=== PATIENT | female | born 2005 | race Caucasian/White ===

== ENCOUNTER 2025-08-05 15:19 | Outpatient (CLI) | payer OTHER, MEDICAID, SELFPAY ==
[2025-08-06 19:35] LABS: Strep B DNA Probe Negative (Negative)
[2025-08-06 20:05] LABS: Strep B Susceptibility Needed? No
== END 2025-08-05 15:20 | disposition home or self-care (01) ==
PROVIDERS: Visit Provider Physician Assistant
DX: O09.33 Supervision of pregnancy with insufficient antenatal care, third trimester (principal)
CPT/HCPCS: 80306; 86592; 87081; 87653

== ENCOUNTER 2025-08-11 08:16 | Outpatient (CLI) | payer MEDICAID, SELFPAY | END 2025-08-11 08:17 | disposition home or self-care (01) | PROVIDERS: Visit Provider Obstetrics & Gynecology | DX: O09.33 Supervision of pregnancy with insufficient antenatal care, third trimester (principal) | CPT/HCPCS: 82951; 82952 ==

== ENCOUNTER 2025-08-26 07:00 | Inpatient (IN) | payer MEDICAID, SELFPAY ==
[2025-08-26] VITALS (20 sets, daily range): BP systolic 118–142; BP diastolic 61–81; PULSE 64–84; RESP 16–18; TEMP 36.4–37.1; O2SAT 97; BMI 37.5
--- NOTE | 2025-08-26 07:31 | W.PM.VAGDEL1 ---
Procedure Procedure Done: Global Procedure Details: Normal spontaneous vaginal delivery Events: Other (Precipitous delivery, limited care, history of PPH) Intrapartal Events: Precipitous Labor <3 Hrs Delivery monitor: external FHT Route of delivery: Laceration description: None Estimated blood loss (mL): 100 Anesthesia type: None Complications: None Narrative: Joy is a 19 yo at 38w5d GA admitted for spontaneous onset of labor. is complicated by limited care, late transfer of care, history of PPH in prior delivery, history of molar . A complete NST was not completed prior to delivery due to precipitous delivery, though category 1 on admission. Baseline 120bpm, moderate variability with accels present. She was checked by bedside RN at 0656 and noted to be 3.5cm dilated. Patient went to restroom shortly thereafter, where she noted pressure and imminent delivery. She was assumed completed at 0659, vertex was noted to be presenting at introitus. Dr. Myers was on the unit, presented to triage. She delivered baby at 0701 via normal spontaneous vaginal delivery. heart tones during second stage of labor were interrupted due to imminent precipitous delivery. Baby delivered OA and the anterior and posterior shoulders delivered without difficulty. Nuchal cord: absent. The cord was clamped and cut after delayed cord clamping. I then assumed care. Active management of the third stage occurred with IM pitocin and gentle cord traction and the placenta delivered spontaneous and intact at 0725. During this time an IV was being placed given history of PPH, where IV pitocin then ensued. Cord gases sent: no Cord blood sent for ABO: no details: - Liveborn male fetus at 0701 - weight pending - APGARs were 9 and 9 at 1 and 5 minutes respectively Perineum and vagina were inspected, and the following lacerations were noted: none. No repair required. Excellent hemostasis and uterine tone was noted. QBL 100cc. The following counts were correct: sponges, needles, instruments. Mother and infant in stable condition following the .
[2025-08-26] MEDS: OXYTOCIN 30 unit/500 ML in NS 30 UNIT/500 ML BAG 300 UNIT IVPB (07:34)
[2025-08-26] MEDS: DOCUSATE SODIUM 100 MG CAPSULE PO (20:06)
[2025-08-27 01:54] VITALS: BP 109/65; PULSE 84; RESP 16; TEMP 36.9; O2SAT 97
[2025-08-27 05:53] VITALS: BP 143/92; PULSE 87; RESP 16; TEMP 36.6; O2SAT 97
[2025-08-27 06:10] VITALS: BP 121/82; PULSE 83
[2025-08-27 07:22] LABS: Hemoglobin* 10.6 gm/dL (12.0-16.0)
[2025-08-27 08:34] VITALS: BP 114/81; PULSE 65; RESP 16; TEMP 36.8; O2SAT 96
--- NOTE | 2025-08-27 10:24 | P.DS_ITS ---
DS: Providers Provider Date Seen: 08/27/25 Date of admission: 08/26/25 07:00 Primary care physician: Not a Local Provider Admitting Clinician: Ene Myers MD Consults: 08/26/25 08:46 Consult to Basket Braider [CONS] Routine Comment: Reason for Consult:: Social Service Consult Discharge Planning Needs Attending Physician on discharge: Carlos Eduardo JETER Date of Discharge: 08/27/25 DS: Diagnosis Discharge Diagnosis (1) care and examination of lactating mother: Status: Deleted (2) suppression: Status: Acute (3) care and examination: Status: Acute Exam Narrative: Exam Narrative: GENERAL APPEARANCE:? normal affect, alert, no distress MOOD:? appropriate CHEST:? clear to auscultation HEART:? regular rate and rhythm ABDOMEN:? soft, non-tender the uterine fundus is At Umbilicus, Midline and is appropriate for the stage of recovery. EXTREMITIES:? normal and no edema Const: Vital Signs, click to edit/add: Vital Signs - 24 hr 08/26/25 10:44 08/26/25 12:27 08/26/25 16:00 Temperature 98.6 F 98.6 F Pulse Rate 80 Pulse Rate [Pulse Oximeter] 77 84 Respiratory Rate 18 18 Blood Pressure 126/81 Blood Pressure [Ri ght Arm] 130/80 118/76 Pulse Oximetry 97 97 Oxygen Delivery Me thod Room Air Room Air 08/26/25 20:00 08/27/25 01:54 08/27/25 05:53 Temperature 97.5 F L 98.4 F 97.8 F Pulse Rate Pulse Rate [Pulse Oximeter] 76 84 87 Respiratory Rate 18 16 16 Blood Pressure Blood Pressure [Ri ght Arm] 126/75 109/65 143/92 H Pulse Oximetry 97 97 97 Oxygen Delivery Me thod Room Air Room Air Room Air 08/27/25 06:10 08/27/25 08:34 Temperature 98.2 F Pulse Rate Pulse Rate [Pulse Oximeter] 83 65 Respiratory Rate 16 Blood Pressure Blood Pressure [Ri ght Arm] 121/82 114/81 Pulse Oximetry 96 Oxygen Delivery Me thod Room Air OB - DS: Summary Hospital Course Hospital Course: Joy is a 19?y.o. G 4 P 2021 who was admitted to L & D for spontaneous labor.??She had a NVD that was uncomplicated. The patient feels well.??The pain is well controlled with current medications.??She has no new complaints.??She is bottle?feeding?and reports things are going well. the patient has done well.??Vitals have been stable.??She has?remained?afebrile.??Has a good appetite,?is?tolerating a general diet.??She is voiding without difficulty.??She is passing gas and has had a bowel movement.??She is ambulating and denies any dizziness.??Has?small?amount of rubra lochia. She is uncertain of plan for prevention.?Help Desk Assistant was present for discharge conversation for the father of the baby's benefit. ?? Problems: none? ?? plan:? Discharge?home with baby.? Follow up in 2 weeks and?6 weeks.? Bottlefeeding, may see if needed? Peripartum Data delivery method: Vaginal Laceration description: None Episiotomy description: None complications: none Gender: Male Infant Discharge Plan: Home Status at Discharge Functional status at discharge: independent ambulation Overall status at discharge: patient is progressing back to baseline Time Spent with Patient Time attestation: Total time spent providing and/or coordinating discharge services: Time spent: Less than 30 minutes Discharge Plan Discharge Disposition: Home, Self-Care Date of Admission: 08/26/25 07:00 Attending Provider on Discharge: Pinky Day Primary Care Provider: Provider,Not a Local Condition: Stable Anticipated Discharge Date/Time: 08/27/25 10:32 Discharge Medications: New docusate sodium 100 mg Capsule 100 mg PO DAILY Qty: 60 0RF Continued DHA 200 mg capsule 200 mg PO DAILY Discontinued clotrimazole [Clotrimazole-7] 1 % cream 1 appful vaginal QHS 7 Days Qty: 45 0RF Discharge Orders: Discharge Order (Routine); Ordered 08/27/25 Ordered By: Pinky Day Patient Education: OB Over the Counter Medication Information, OB Vaginal/Bottle Feeding Additional Instructions: Discharge instructions were reviewed with the patient including signs and symptoms of infection and home going medications Nothing vaginally for 6 weeks: no tampons or intercourse Do not drive while taking narcotic pain medication(s) Off Work or School for 6 weeks Symptoms to report to doctor: * Bleeding that saturates more than one pad per hour * Passing clots larger than the size of a golf ball * Pain not relieved by prescribed medication * Fever above 100.4 degrees Fahrenheit * A foul vaginal odor * Difficulty in emotions, mood, and functions * Thoughts of hurting yourself and/or * Painful, reddened area in your breast * Any drainage, redness, or tenderness in your IV/epidural site * Severe headache that doesn't improve after taking medications * Changes in vision, including temporary loss of vision, blurred vision, and/or light sensitivity * Upper abdominal pain (usually under ribs on the right side) * Decrease in urination or painful, frequent urinating * Chest pain * Shortness of breath * Tenderness or pain with redness and/swelling in the calf(s) of your leg 2-week visit: discuss feeding concerns, review control options and screen for anxiety/depression. 6-week visit for an annual exam. consultation services are available to all mothers and babies for the first year after delivery.? To make an appointment, please call [phone]. Activity Level: Activity as Tolerated and No strenuous activity Discharge Diet: Regular Follow Up Appointments: [facility] [Provider Group] Forms: [employer]th Info Instructions
--- NOTE | 2025-08-27 11:50 | PC.SOCIAL ---
Met with pt. who had concerns about insurance. Pt.'s significant other is Lithuanian speaking. Offered to wait for an natural gas treating unit operator and pt. declined. Pt. was on medical assistance with [employer] and when she renewed her MA she accidently re-applied instead of renewing her medical assistance application. They now have her under [employer] per fee plan under medical assistance for one month. She is concerned about coverage for her son's and she has been trying to find a dentist that takes her insurance for some dental issues. Advised pt. to contact [facility] to let them know she gave and to drop off a copy of her son's certificate once she receives it. Gave patient information for the [facility] who can assist pt. with figuring out her medical insurance/coverage concerns with an advocate there, if she does not get a response right away from [facility]. Also gave pt. the contact information for [facility] dental program. They see patient's with medical assistance and without insurance. Pt. had WIC in the past for her daughter. Gave pt. the contact information to sign up for WIC again with [facility]. Pt. had not other concerns but is aware she ask for outreach and education social worker in the hospital if she needs any additional resources or assistance.
--- NOTE | 2025-10-13 14:25 | W.PM.LDBA ---
Subjective History of Present Illness Time Seen by Provider: 07:10 Date Seen: 08/26/26 Narrative: Delayed documentation due to missed component of documentation. Joy is a 19yo admitted on 08/26 in spontaneous labor. complicated by history of hemorrhage, insufficient care, history of molar . Her complete history and physical was documented by Dr. Hall on 08/25/2025. She presented to care and subsequently precipitously delivered. Admission H&P was not completed due to her imminent delivery. I did not meet her until , where Dr. Jose Eduardo Sharpe did the delivery and I assumed care then delivered placenta. Please see delivery note for details. Specific Issues/Plans [id number]: Last Genetic screening: Low risk, male Carrier screening:neg H&P: Dr. Hall on 08/25/25. Desires membrane sweep at 39 week visit. # transfer OB at 35w5d # history of molar # history of hemorrhage requiring blood transfusion. 03/23/23 at 38 3/7 weeks. Epidural. Small R periurethral laceration. Placental delivered spontaneously. EBL 200 cc. She went on to have a hemorrhage that resolved with uterotonics, clot evacuation and uterine massage. She received 2 units of packed red cells due to hemoglobin of 6.8. # insufficient care. Last visit prior to transfer was 04/30/2025 due to insurance issues. No gestational diabetes screening. Urine drug screen: neg 28 week labs performed at 35w5d # 1hr GTT at 35w5d: 142 3hr GTT: 1 of 4 values elevated; no diabetes Imagin. 01/26/2025: Viable IUP at 8 weeks and 3 days with an CINTHYA of 09/04/2025 2. 04/30/2025: Fundal placenta, normal amniotic fluid. Normal anatomy. EFW 38% [Summary of level II or follow up US here; BPP scores not necessary] Vaccinations: COVID: Declined Flu: Declined Tdap: 08/05/25 RSV: 08/11/25 32 week mental health: done Last pap: first pap PP labs 02/27/2025: O positive, negative antibody screen, hemoglobin 12.1, platelets 179, rubella immune, RPR nonreactive, hepatitis-B surface antigen nonreactive, HIV nonreactive. Gonorrhea and chlamydia are negative. Urine culture is negative. Hep C negative. Hemoglobin A1c 5.2% OB - Problem Based A/P Additional Plan (1) care and examination of lactating mother: Status: Deleted (2) suppression: Status: Acute (3) care and examination: Status: Acute Plan See delivery note for details. Admit for routine cares and lactating. OB Exam Physical Exam Vital signs: Temp Pulse Resp BP Pulse Ox O2 Del Method 98.2 F 65 16 114/81 96 Room Air 08/27/25 08:34 08/27/25 08:34 08/27/25 08:34 08/27/25 08:34 08/27/25 08:34 08/27/25 08:34 Narrative: General: Alert and oriented, no acute distress. Pain is overall well manage, status post unmedicated delivery.
== END 2025-08-27 14:28 | disposition home or self-care (01) | DRG 807 ==
LOC: OB OUT 07:12 → OB 07:12
PROVIDERS: Admitting Provider Obstetrics & Gynecology; Visit Provider Obstetrics & Gynecology
DX: O98.82 Other maternal infectious and parasitic diseases complicating childbirth (principal); Z37.0 Single live birth; B37.31 Acute candidiasis of vulva and vagina; O62.3 Precipitate labor; Z3A.38 38 weeks gestation of pregnancy
CPT/HCPCS: 36415; 84112; 85018; 85025; 86592; 86850; 86900; 86901; 88307; A9270; J2590